=== PATIENT | female | born 1975 | race Caucasian/White ===

== ENCOUNTER → 2017-01-25 | Outpatient (CLI) | payer BC ==
[~2017-01-25] MED LIST: MTR600X PO; OXYC-57 PO
== END | disposition home or self-care (01) ==
LOC: C.PAPS 09:43 → MERGE 09:43
PROVIDERS: ATTEND Obstetrics & Gynecology
DX: Z01.411 Encounter for gynecological examination (general) (routine) with abnormal findings (principal); R87.610 Atypical squamous cells of undetermined significance on cytologic smear of cervix (ASC-US); R87.616 Satisfactory cervical smear but lacking transformation zone; Z87.42 Personal history of other diseases of the female genital tract

== ENCOUNTER 2017-05-11 05:30 | Observation (INO) | payer BC ==
[2017-04-23 11:24] VITALS: BMI 32.0
[2017-05-09 17:18] LABS: BASO % 0.1 %; BASO ABS # 0.01 K/uL (0-0.2); COMPLETE YES; EOS % 2.5 %; HEMATOCRIT 38.1 % (37-47); IG% 0.1 %; LYMPH % 25.7 %; LYMPH ABS # 2.22 K/uL (1.2-3.4); MEAN CELL VOLUME 85.8 fL (80-100); MEAN CORPUSCULAR HEMOGLOBIN 28.4 pg (25-34); MEAN CORPUSCULAR HGB CONC 33.1 g/dl (32-36); MONO % 6.6 %; PLATELET COUNT 334 K/uL (130-400); RED BLOOD COUNT 4.44 M/uL (4.2-5.4); WHITE BLOOD COUNT 8.65 K/uL (4.8-10.8)
[2017-05-09 17:47] LABS: BUN/CREATININE RATIO 13.6 (10-20); CREATININE 0.92 mg/dl (0.60-1.20); POTASSIUM 3.7 mmol/L (3.5-5.1)
[~2017-05-11] VITALS: Ht 162.6 cm; Wt 85.0 kg
[2017-05-11] VITALS (12 sets, daily range): BP systolic 86–130; BP diastolic 43–87; PULSE 65–87; TEMP 36.5–37.1; O2SAT 95–100; Ht 162.6 cm; Wt 85.0 kg
[2017-05-11] MEDS ORDERED: LACTATED RINGER'S 1000ML 1,000 ML IV SCH ×3 (06:00→11:15)
[2017-05-11] MEDS ORDERED: CEFAZOLIN 2000 MG/60 ML D5W 50 ML IV SCH (06:00)
[2017-05-11] MEDS ORDERED: BUPIVACAINE 0.5 % 5 MG/1 ML MPF 30ML VIAL ONE (06:53)
[2017-05-11] MEDS ORDERED: HYDROmorphone INJ 2 MG/ML SYR/VIAL ONE (06:54)
[2017-05-11] MEDS ORDERED: MIDAZOLAM HCL 1 MG/ML 2ML VIAL ONE (06:54)
[2017-05-11] MEDS ORDERED: KETAMINE HCL INJ 50 MG/ML 10 ML VIAL ONE (06:54)
[2017-05-11] MEDS ORDERED: FENTANYL CITRATE INJ 50 MCG/1 ML 2 ML VIAL ONE (06:54)
--- NOTE | 2017-05-11 07:14 | History & Physical Bridge Note ---
H&P Re-Evaluation Bridge Note: I have examined the patient, reviewed the History & Physical and in the interval since the performance of the History & Physical I have noted the following changes of clinical significance: No changes noted
[2017-05-11] MEDS ORDERED: SCOPOLAMINE 1.5 MG TDSY TD ONE (07:26)
[2017-05-11] MEDS ORDERED: ONDANSETRON INJ 2 MG/ML 2 ML VIAL IV PRN ×2 (08:00→09:30)
[2017-05-11] MEDS ORDERED: PROMETHAZINE HCL INJ 12.5 MG in SODIUM CHLORIDE 0.9% 50ML 50 ML IV PRN ×2 (08:00→09:30)
[2017-05-11] MEDS ORDERED: HYDROmorphone INJ 1 MG/ML SYR IV PRN (08:00)
[2017-05-11] MEDS ORDERED: FENTANYL CITRATE INJ 50 MCG/1 ML 2 ML VIAL IV PRN (08:00)
[2017-05-11] MEDS ORDERED: ATROPINE SULFATE 0.1 MG/ML 5ML SYR IV PRN (08:00)
[2017-05-11] MEDS ORDERED: EpHEDrine SULFATE INJ 50 MG/ML AMP IV PRN (08:00)
[2017-05-11] MEDS ORDERED: LIDOCAINE HCL 2% 2 ML VIAL (20MG/ML) ONE (08:11)
[2017-05-11] MEDS ORDERED: DEXAMETHASONE SOD INJ 4 MG/ML VIAL ONE (08:11)
[2017-05-11] MEDS ORDERED: GLYCOPYRROLATE INJ 0.2 MG/ML VIAL ONE ×2 (08:11→09:05)
[2017-05-11] MEDS ORDERED: ROCURONIUM BROMIDE 10 MG/ML 5 ML VIAL ONE (08:11)
[2017-05-11] MEDS ORDERED: PROPOFOL IV EMULSION 10 MG/ML 20 ML VIAL IV ONE (08:11)
[2017-05-11] MEDS ORDERED: ONDANSETRON INJ 2 MG/ML 2 ML VIAL ONE (08:11)
[2017-05-11] MEDS ORDERED: DiphenhydrAMINE HCL 50 MG/ML VIAL ONE (08:11)
[2017-05-11] MEDS ORDERED: METOCLOPRAMIDE HCL INJ 5 MG/ML 2 ML VIAL ONE (08:11)
[2017-05-11] MEDS ORDERED: NEOSTIGMINE METHYLSULFATE 5 MG/5 ML SYR ONE (08:11)
[2017-05-11] MEDS ORDERED: METHYLENE BLUE 0.5% 10 ML VIAL ONE (08:46)
[2017-05-11] MEDS ORDERED: LARYING-O-JET KIT (LTA) ONE ×2 (08:46)
--- NOTE | 2017-05-11 09:25 | [facility] Post Operative Brief Note ---
Immediate Operative Summary Operative Date May 11, 2017. Pre-Operative Diagnosis Menorrhagia, dysmenorrhea, fibroid uterus. Post-Operative Diagnosis Same as preop. Procedure(s) Performed Total Laparoscopic Hysterectomy, bilateral salpingectomy with use of DaVinci, cystoscopy. Surgeon Dr. Sutherland Supervisor Chassis Assembly Surgeon(s) None Estimated Blood Loss 30 ml Findings Patient was taken back to the operating room prepped and draped in dorsolithotomy position in yellow fin Jose F stirrups. 2 g Ancef given timeout performed Bah catheter used to drain her bladder V care sewn into her cervix in the usual fashion Gloves change in surgeon's assistant supraumbilical incision made with scalpel ashlyn technique entry through cut down. Blunt tipped Do trocar then placed balloon inflated and CO2 gas insufflated into the abdomen Findings upper abdomen there was an adhesion near the umbilicus probably at her prior tubal ligation site this was omental and small. Otherwise no sign of visceral organ injury or other abnormalities. Deep Trendelenburg position obtained and will the findings were as noted small simple cyst on the left ovary otherwise both adnexa and normal uterus appeared normal fallopian tubes on the had the appearance of her tubal ligation but otherwise normal bladder normal. 2 robotic ports placed 1 on the left one on the right and a left upper quadrant 11 mm platelets port placed. Robot docked arm #1 was the monopolar fredy in arm #2 bipolar [place]. Procedure was begun by identifying the course of the ureters which appeared to follow a normal course uterus was manipulated to the B care remove the fallopian tubes initially first the left than on the right and these were removed for the accessory port blood supply distal to the ovary was coagulated first on the left side with the bipolar [place] and cut with the monopolar fredy same process with the round ligament uterine vessels then skeletonized bladder flap dissected away uterine vessels identified and coagulated we were well away from the bladder and the ureter on the left side vessels and cut The exact same process was repeated on the right side once both uterine pedicles were coagulated and cut was made an anterior colpotomy with the monopolar fredy colpotomy was completed staying medial to our uterine vessels patient's uterus was then pulled into the vagina to maintain pneumoperitoneum. Methylene blue was given by anesthesia IV instrument exchange the crescencio needle school bus driver/teacher assistant in arm #1 Cobra grasper in arm #220 90 day V lock suture then placed to the accessory port cuff closed from left to right Right to left suture cuts it was no tail we ensured at least 1 cm full- thickness bites of vaginal mucosa. After generous irrigation and suction reapplied Tisseel to the area 4 mL. Hemostasis was excellent. Cystoscopy repeat revealed normal findings a normal bladder no sign of sutures or damage and good strong jets of blue screening dye from the left and right ureter openings. Cystoscope removed and a Bah catheter placed the uterus had been removed from the vagina previously. Robot was undocked ports removed gas allowed to escape all incisions injected with 0.5% Marcaine fascia closed carefully in the umbilical incision with several [id number] 0 Vicryl's same process with a left upper quadrant incision 4-0 subcuticular Monocryl and Dermabond sponge and attachment counts correct. Specimens A: Uterus, cervix, bilateral fallopian tubes Drains Bah Anesthesia General Complication(s) None Disposition Recovery Room / PACU
[2017-05-11] MEDS ORDERED: OXYC-57 PO (09:26)
[2017-05-11] MEDS ORDERED: MTR600X PO (09:26)
--- NOTE | 2017-05-11 09:27 | Discharge Instructions ---
Discharge Instructions Date of Service May 11, 2017. Admission Reason for Admission: Menorrhagia, Leiomyoma Of Uterus Discharge Discharge Diagnosis / Problem: Menorrhagia Discharge Goals Goal(s): Routine recovery after surgery Activity Recommendations Activity Limitations: per Instructions/Follow-up section . Instructions / Follow-Up Instructions / Follow-Up POST OPERATIVE: BOWEL FUNCTION/MEDICATIONS: 1. Constipation pain and discomfort are the most common complaints 5-7 days after surgery. Points 2-6 address the things that can help. 2. Chewing gum can help stimulate the gut and help improve digestion and motility. 3. Milk of Magnesia 1-2 times per day until return of bowel function. 4. Colace is a stool softener that helps. Taking this 2-3 times per day until bowel function returns to normal is highly recommended. 5. Dulcolax is a laxative that may be used if several days have passed without a bowel movement. Alternatively Miralax may be used daily instead. 6. Drink plenty of fluids as this will also reduce constipation. 7. Narcotic pain medications will be prescribed by your physician. They are safe to use and we encourage you to use them. If you are not allergic, ibuprofen will also be prescribed. Many patients will be able to transition off of the narcotic medications to ibuprofen by postoperative day 3. ACTIVITY RECOMMENDATIONS: 1. Get plenty of rest and listen to your body. If you are tired, take a nap. 2. You may shower, but do not take a tub bath until you see your doctor at the 2 week post operative visit. 3. Absolutely NO intercourse and nothing in the vagina until you are examined by your doctor at the 6 week visit. At that visit it will be determined when such activities can be resumed. This can range from 6-12 weeks after your surgery depending on healing time. 4. The main physical activity in the first week should be walking. By the second week you can slowly increase activity. There are no limits on walking up and down stairs. 5. Do not lift more than 5-10 lbs for 4 weeks. Remember the "one-handed rule", i.e. if you can lift something with only one hand it's likely okay. 6. Minimize plsql developer like vacuuming and exercising for 4 weeks. "Overdoing it" can lead to incisions not healing, pain and vaginal bleeding , so again, listen to your body. 7. Driving can be resumed when you feel able. Do not drive within 24 hours of taking a narcotic medication. EXPECTATIONS: 1. Vaginal spotting, bleeding and discharge are common after surgery. There may even be an odor to the discharge which is often related to sutures used in the vagina. If you experience heavy vaginal bleeding, call the office number day or night [phone]. 2. Bladder discomfort is common after surgery from the catheter. This usually resolves in 1-2 weeks. 3. By the end of the 3rd or 4th week you should be feeling much better. It may take up to 6 weeks for your energy levels to return to normal. 4. Narcotic medications have side effects such as: dizziness, headache, nausea and/or vomiting. If you suspect your pain medication is causing problems, call our office and we may be able to prescribe an alternate medication. 5. The skin incisions are often covered with a liquid bandage. This will gradually peel off over time. CALL THE OFFICE IF YOU HAVE ANY OF THE FOLLOWIN. Temperature of 101 degrees or higher. 2. Severe abdominal or pelvic pain not relieved by pain medication. 3. Persistent nausea or vomiting. 4. Increased pain with urination or difficulty urinating. 5. Bright red bleeding that soaks more than 1 pad per hour. CONTACT PHONE NUMBERS: Main Office: [phone] Surgical Nurse: [phone] extension [phone] Avoid all tobacco products. If you need help to stop smoking, call [place]'s FREE QUITLINE at . This is a free call. Current Hospital Diet Patient's current hospital diet: Discharge Diet Recommended Diet: Regular Diet Procedures Procedures Performed: Total Laparoscopic Hysterectomy, bilateral salpingectomy with use of DaVinci, cystoscopy. Pending Studies Studies pending at discharge: no Medical Emergencies . Who to Call and When: Medical Emergencies: If at any time you feel your situation is an emergency, please call 911 immediately. . Non-Emergent Contact Non-Emergency issues call your: [employer] . . "Provider Documentation" section prepared by Josue Sutherland. . VTE Core Measure Inpt VTE Proph given/why not?: Ora Bassett, SCD's
[2017-05-11] MEDS ORDERED: BISACODYL 10 MG SUPP PR PRN (09:30)
[2017-05-11] MEDS ORDERED: OXYCODONE/ACETAMINOPHEN 5-325 TAB PO PRN (09:30)
[2017-05-11] MEDS ORDERED: ACETAMINOPHEN 325 MG TAB PO PRN (09:30)
[2017-05-11] MEDS ORDERED: KETOROLAC TROMETHAMINE 30 MG/ML VIAL IV. PRN (09:30)
[2017-05-11] MEDS ORDERED: MEPERIDINE HCL 50 MG/ML CARP IV PRN ×2 (09:30)
[2017-05-11] MEDS ORDERED: PROMETHAZINE HCL INJ 25 MG in SODIUM CHLORIDE 0.9% 50ML 50 ML IV PRN (09:30)
[2017-05-11] MEDS ORDERED: SIMETHICONE 80 MG CHEW PO PRN (09:30)
[2017-05-11] MEDS ORDERED: IBUPROFEN 600 MG TAB PO PRN (09:30)
[2017-05-11] MEDS ORDERED: ZOLPIDEM TARTRATE 5 MG TAB PO PRN (09:30)
[2017-05-11] MEDS ORDERED: MAGNESIUM HYDROXIDE SUSP 30 ML UDC PO PRN (09:30)
[2017-05-11] MEDS ORDERED: TISSEEL FIBRIN SEALANT 4ML TOP ONE (09:46)
[2017-05-11] MEDS ORDERED: KETOROLAC TROMETHAMINE 30 MG/ML VIAL IV STA (10:04)
[2017-05-11] MEDS ORDERED: KETOROLAC TROMETHAMINE 30 MG/ML VIAL ONE (10:04)
--- NOTE | 2017-05-11 10:05 | Anesthesiology Progress Note ---
Anesthesia Post Op Note Date & Time May 11, 2017 at 10:05 Vital Signs Pain Intensity: 0 Vital Signs Past 12 Hours Date Time Temp Pulse Resp B/P (MAP) Pulse Ox O2 Delivery O2 Flow Rate FiO2 05/11/17 09:45 85 14 119/73 100 Mask 10 05/11/17 09:35 88 18 101/66 100 Mask 10 05/11/17 09:29 36.8 106 12 115/67 99 Mask 10 05/11/17 05:53 36.9 83 18 121/75 (90) 98 Room Air Notes Mental Status: alert / awake / arousable, participated in evaluation Pt Amnestic to Procedure: Yes Nausea / Vomiting: adequately controlled Pain: improving with treatment Airway Patency, RR, SpO2: stable & adequate BP & HR: stable & adequate Hydration State: stable & adequate Anesthetic Complications: no major complications apparent Anesthetic Complications: patient to receive dose of toradol prior to leaving pacu to assist with additional pain control.
[2017-05-11] MEDS ORDERED: IV FLUIDS COMPLETED PRN (12:30)
[2017-05-11 15:08] LABS: HEMATOCRIT 30.6 % (37-47)
[2017-05-11] MEDS ORDERED: LACTATED RINGER'S 1000ML 1,000 ML IV ONE (15:30)
[2017-05-11 19:42] LABS: HEMATOCRIT 30.5 % (37-47); MEAN CELL VOLUME 85.2 fL (80-100); MEAN CORPUSCULAR HEMOGLOBIN 27.7 pg (25-34); MEAN CORPUSCULAR HGB CONC 32.5 g/dl (32-36); MEAN PLATELET VOLUME 9.2 fL (7.4-10.4); PLATELET COUNT 333 K/uL (130-400); RED BLOOD COUNT 3.58 M/uL (4.2-5.4); WHITE BLOOD COUNT 15.55 K/uL (4.8-10.8)
[2017-05-11] MEDS: DOCUSATE SODIUM 100 MG CAP PO SCH (21:05)
[2017-05-11] MEDS: OXYCODONE/ACETAMINOPHEN 5-325 TAB PO PRN (22:02)
[2017-05-12 03:30] VITALS: BP 99/64; PULSE 89; TEMP 37; O2SAT 96
[2017-05-12 06:40] LABS: EOS % 0.1 %; HEMATOCRIT 25.5 % (37-47); IG% 0.3 %; LYMPH ABS # 1.93 K/uL (1.2-3.4); MEAN CORPUSCULAR HEMOGLOBIN 27.3 pg (25-34); MEAN CORPUSCULAR HGB CONC 32.2 g/dl (32-36); MONO % 6.9 %; NEUT % 80.7 %; PLATELET COUNT 282 K/uL (130-400); WHITE BLOOD COUNT 16.03 K/uL (4.8-10.8)
[2017-05-12 07:30] VITALS: BP 108/49; PULSE 87; TEMP 37; O2SAT 97
[2017-05-12 07:42] LABS: COMPLETE YES; OVALOCYTES 1+
[2017-05-12 08:19] VITALS: BP 108/49; PULSE 87; TEMP 37; O2SAT 97
[2017-05-12] MEDS: OXYCODONE/ACETAMINOPHEN 5-325 TAB PO PRN ×2 (08:28→08:30)
[2017-05-12] MEDS: DOCUSATE SODIUM 100 MG CAP PO SCH (08:29)
--- NOTE | 2017-05-12 09:06 | OB/GYN Progress Note ---
NIGHT ORDER SELECTOR Progress Note Date of Service May 12, 2017. Subjective conversation w/ patient, physical exam Ambulation: ambulating normally Voiding: no voiding problems Passing Gas: Yes Diet Tolerance: Regular Diet Pain: controlled Review of Systems Constitutional: No problem reported Respiratory: No problem reported Cardiac: No problem reported Breast: No problem reported Abdomen: No problem reported Female : No problem reported Objective Vital Signs Date Time Temp Pulse Resp B/P (MAP) Pulse Ox O2 Delivery O2 Flow Rate FiO2 05/12/17 08:19 37.0 87 18 97 Room Air 05/12/17 07:30 Room Air 05/12/17 07:30 37.0 87 18 108/49 (68) 97 Room Air 05/12/17 03:30 37.0 89 18 99/64 (76) 96 Room Air 05/11/17 23:45 37.0 75 18 98/62 (74) 96 Room Air 05/11/17 23:45 96 Room Air 05/11/17 17:20 100 Room Air 05/11/17 17:20 36.8 78 22 105/65 (78) 100 Room Air 05/11/17 16:50 36.8 74 22 88/53 (65) 99 Room Air 05/11/17 16:05 36.5 75 20 94/57 (69) 97 Room Air 05/11/17 14:30 74 87/43 (58) 05/11/17 14:10 36.6 70 20 86/57 (67) 100 Room Air 05/11/17 13:10 36.9 87 20 105/57 (73) 98 Room Air 05/11/17 12:10 36.6 65 18 90/50 (63) 05/11/17 11:40 36.5 66 18 96/57 (70) 97 Room Air 05/11/17 11:10 36.7 69 18 109/64 (79) 95 Room Air 05/11/17 10:40 Room Air 05/11/17 10:40 98 Room Air 05/11/17 10:40 37.1 85 20 130/87 (101) 98 Room Air 05/11/17 10:20 36.7 66 16 127/70 99 Nasal Cannula 2 05/11/17 10:05 36.3 93 22 110/85 99 Nasal Cannula 2 05/11/17 09:55 82 12 123/60 100 Nasal Cannula 2 05/11/17 09:45 85 14 119/73 100 Mask 10 05/11/17 09:35 88 18 101/66 100 Mask 10 05/11/17 09:29 36.8 106 12 115/67 99 Mask 10 Physical Exam General Appearance: WELL-APPEARING, NO APPARENT DISTRESS Respiratory/Chest: no respiratory distress Cardiovascular: regular rate, rhythm Abdomen: normal bowel sounds Incision Description: Clean, Dry & Intact Extremities: normal inspection Laboratory Results Last 24 Hours Test 05/11/17 14:57 05/11/17 19:30 05/12/17 06:27 Hemoglobin 10.1 g/dL 9.9 g/dL 8.2 g/dL Hematocrit 30.6 % 30.5 % 25.5 % White Blood Count 15.55 K/uL 16.03 K/uL Red Blood Count 3.58 M/uL 3.00 M/uL Mean Corpuscular Volume 85.2 fL 85.0 fL Mean Corpuscular Hemoglobin 27.7 pg 27.3 pg Mean Corpuscular Hemoglobin Concent 32.5 g/dl 32.2 g/dl RDW Standard Deviation 42.8 fL 43.5 fL RDW Coefficient of Variation 13.6 % 14.1 % Platelet Count 333 K/uL 282 K/uL Mean Platelet Volume 9.2 fL 9.0 fL Neutrophils (%) (Auto) 80.7 % Lymphocytes (%) (Auto) 12.0 % Monocytes (%) (Auto) 6.9 % Eosinophils (%) (Auto) 0.1 % Basophils (%) (Auto) 0.0 % Neutrophils # (Auto) 12.93 K/uL Lymphocytes # (Auto) 1.93 K/uL Monocytes # (Auto) 1.11 K/uL Eosinophils # (Auto) 0.01 K/uL Basophils # (Auto) 0.00 K/uL Immature Granulocyte % (Auto) 0.3 % Immature Granulocyte # (Auto) 0.05 K/uL Ovalocytes 1+ Assessment and Plan Post-Op Day Number: 1 Continue Routine Care: POD#1 s/p robotic-assisted laparoscopic hysterectomy. Doing well. Hemoglobin 8.2 this morning, vitals stable. Patient is ambulating well, no weakness/dizziness. We discussed supplementing with iron upon discharge. Will discharge to home. Followup 3w in office with Dr Sutherland.
--- NOTE | 2017-05-12 13:47 | DISCHARGE SUMMARY ---
Batsheva had a total laparoscopic hysterectomy on 05/11/2017. Operative note has been dictated. Her surgery was uncomplicated. Her course in hospital was that she stayed one night. She initially had some lightheadedness, although she had no bleeding, was able to void and good urine output. Her hemoglobin was stable from 10.1 and on discharge at 8.2. She was advised iron at that time. She was ambulating, tolerating an oral diet, passing flatus. No extremity pain and pain was well controlled. PHYSICAL EXAMINATION: VITAL SIGNS: Stable. She was febrile. Incision is clean, dry and intact. EXTREMITIES: Negative. ABDOMEN: Soft. IMPRESSION AND PLAN: Postop day #1 from total laparoscopic hysterectomy. Ferrous sulfate and pain medication given to the patient. Reviewed discharge instructions and told to follow up in the office.
== END 2017-05-12 08:45 | disposition home or self-care (01) ==
LOC: C.ACU 05:30 → C.MS4N 06:15
PROVIDERS: ADMIT Obstetrics & Gynecology; ATTEND Obstetrics & Gynecology
DX: N84.0 Polyp of corpus uteri (principal); N83.8 Other noninflammatory disorders of ovary, fallopian tube and broad ligament; D25.9 Leiomyoma of uterus, unspecified

== ENCOUNTER → 2017-06-06 | Outpatient (CLI) | payer BC ==
[2017-06-06 16:37] LABS: HEMATOCRIT 35.4 % (37-47); MEAN CELL VOLUME 84.7 fL (80-100); MEAN CORPUSCULAR HEMOGLOBIN 27.8 pg (25-34); MEAN CORPUSCULAR HGB CONC 32.8 g/dl (32-36); MEAN PLATELET VOLUME 9.2 fL (7.4-10.4); PLATELET COUNT 414 K/uL (130-400); RED BLOOD COUNT 4.18 M/uL (4.2-5.4); WHITE BLOOD COUNT 9.26 K/uL (4.8-10.8)
== END | disposition home or self-care (01) ==
LOC: C.LAB1850 15:46
PROVIDERS: ATTEND Obstetrics & Gynecology
DX: N92.0 Excessive and frequent menstruation with regular cycle (principal)